=== PATIENT | male | born 1970 | race Hispanic/Latino ===

== ENCOUNTER 2022-05-22 12:26 | Inpatient (IN) | payer BC ==
[~2022-05-22 12:26] MED LIST: Iopamidol 370 76% 100 ML VIAL ONE
[2022-05-22 13:19] LABS: #Eosinphils 0.2 10x3/uL (0.0-0.5); #Monocytes 0.6 10x3/uL (0.0-1.1); #Neutrophils 2.9 10x3/uL (1.5-8.4); %Basophils 0.4 % (0.0-2.0); %Eosinophils 3.3 % (0.0-6.0); %Lymphocytes 29.5 % (18.0-47.0); %Monocytes 10.5 % (0.0-10.0); %Neutrophils 56.1 % (40.0-75.0); Hemoglobin 15.6 g/dL (13.5-17.5); Mean Corpuscular HGB CONC 36.5 g/dL (32.0-36.0); Mean Corpuscular Hemoglobin 32.7 pg (27.0-33.0); Mean Corpuscular Volume 89.5 fl (81.2-95.1); Mean Platelet Volume 8.1 fl (7.4-10.4); Platelet Count 231 10x3/uL (150-450); Red Blood Cell (RBC) Count 4.77 10x6/uL (4.32-5.72); White Blood Cell (WBC) Count 5.2 10x3/uL (3.5-10.5)
[2022-05-22 13:32] LABS: ALT (SGPT) 25 U/L (8-55); AST (SGOT) 18 U/L (5-34); Albumin 4.3 g/dL (3.5-5.0); Alkaline Phosphatase 59 U/L (40-110); Anion Gap 12 mmol/L (10-20); BUN (Urea Nitrogen) 20 mg/dL (8.9-20.6); Bilirubin, Total 0.8 mg/dL (0.2-1.2); Calc. Creatinine Clearance 0 mL/min (70-130); Carbon Dioxide 23 mmol/L (22-29); Chloride 106 mmol/L (98-107); Estimated GFR 75; Globulin 2.4 g/dL (2.4-3.5); Glucose 101 mg/dL (70-105); Protein, Total 6.7 g/dL (6.0-8.3); Sodium 137 mmol/L (136-145)
[2022-05-22] MEDS ORDERED: Acetaminophen 325 MG TAB PO PRN (15:19)
[2022-05-22] MEDS ORDERED: Ondansetron PF 4 MG/2 ML Vial IVP PRN (15:19)
[2022-05-22] MEDS ORDERED: Racepinephrine 2.25% 0.5 ML NEB ONE (15:36)
[2022-05-22] MEDS ORDERED: Aspirin Chewable 81 MG TAB ONE (16:15)
[2022-05-22 18:11] VITALS: BMI 30.8
[2022-05-22] MEDS ORDERED: Aspirin 325 MG TAB PO SCH (18:30)
[2022-05-22] MEDS ORDERED: FLU VACC QS2022-23(6MOS UP)/PF 60 MCG/0.5 ML SYRINGE IM ONE (18:45)
[2022-05-22] MEDS: Atorvastatin Calcium 40 MG TAB PO SCH (20:32)
[2022-05-22] MEDS: Heparin 5,000 UNITS/ML VIAL SC SCH (20:32)
[2022-05-23 04:23] LABS: #Eosinphils 0.3 10x3/uL (0.0-0.5); #Monocytes 0.7 10x3/uL (0.0-1.1); #Neutrophils 2.9 10x3/uL (1.5-8.4); %Basophils 0.5 % (0.0-2.0); %Eosinophils 4.4 % (0.0-6.0); %Lymphocytes 37.3 % (18.0-47.0); %Monocytes 11.2 % (0.0-10.0); %Neutrophils 46.4 % (40.0-75.0); Hemoglobin 15.1 g/dL (13.5-17.5); Mean Corpuscular HGB CONC 36.2 g/dL (32.0-36.0); Mean Corpuscular Hemoglobin 32.8 pg (27.0-33.0); Mean Corpuscular Volume 90.7 fl (81.2-95.1); Mean Platelet Volume 8.2 fl (7.4-10.4); Platelet Count 237 10x3/uL (150-450); RBC Distribution Width 12.2 % (11.5-14.5); White Blood Cell (WBC) Count 6.3 10x3/uL (3.5-10.5)
[2022-05-23 04:38] LABS: Anion Gap 14 mmol/L (10-20); BUN (Urea Nitrogen) 21 mg/dL (8.9-20.6); Calc. Creatinine Clearance 102 mL/min (70-130); Calcium 9.3 mg/dL (7.8-10.44); Carbon Dioxide 25 mmol/L (22-29); Cardiac Risk 4.4 (Less than 4.5); Chloride 107 mmol/L (98-107); Cholesterol 163 mg/dl (< 200 Desired); Estimated GFR 64; Glucose 120 mg/dL (70-105); HDL Cholesterol 37 mg/dL (>60 Neg Risk); LDL Cholesterol, Calculated 68 mg/dL; Potassium 3.8 mmol/L (3.5-5.1); Sodium 142 mmol/L (136-145); Triglycerides 289 mg/dL (Less than 150)
[2022-05-23] MEDS: Aspirin 81 mg Enteric Coated Tablet PO SCH (08:22)
[2022-05-23] MEDS: Heparin 5,000 UNITS/ML VIAL SC SCH ×3 (08:22→20:52)
[2022-05-23 10:04] LABS: Syphilis Antibody Nonreactive (Nonreactive); Syphilis Antibody Index 0.07 S/CO (<1.00 Non-Reactive)
[2022-05-23] MEDS: Atorvastatin Calcium 40 MG TAB PO SCH (20:52)
[2022-05-24 07:31] VITALS: BP 127/86; TEMP 97.8
[2022-05-24] MEDS: Aspirin 81 mg Enteric Coated Tablet PO SCH (09:13)
[2022-05-24] MEDS: Heparin 5,000 UNITS/ML VIAL SC SCH (09:13)
== END 2022-05-24 11:16 | disposition home or self-care (01) | DRG 66 ==
LOC: CSHERS 12:26 → CSHTELE 18:00 → INTOOBSV 18:00 → OBSVTOIN 05-24 10:06
PROVIDERS: ADMIT Internal Medicine; ATTEND Family Medicine
PROC: 5A09357 Assistance with Respiratory Ventilation, Less than 24 Consecutive Hours, Continuous Positive Airway Pressure (ICD-10-PCS; principal; 2022-05-24)
DX: I63.9 Cerebral infarction, unspecified (principal); E78.5 Hyperlipidemia, unspecified; I10 Essential (primary) hypertension; G47.33 Obstructive sleep apnea (adult) (pediatric); Z86.73 Personal history of transient ischemic attack (TIA), and cerebral infarction without residual deficits; Z20.822 Contact with and (suspected) exposure to COVID-19
CPT/HCPCS: 0042T; 36416; 70450; 70551; 80048; 80053; 80061; 81241; 84443; 84484; 85025; 85303; 85305; 85613; 86780; 93005; 93306; 94660; 96372; G0378; J1644; Q9967; U0003; U0005